=== PATIENT | female | born 1940 | race Caucasian/White ===

== ENCOUNTER → 2023-10-15 | Outpatient (REF) | payer MEDICARE, OTHER ==
[~2023-10-15] MED LIST: ASPIRIN E.C. 8181 MG PO; CALTRATE 600 +1 TAB PO; CRESTOR 10MG10 MG PO; CYMBALTA30 M1 PO; EZETIMIBE10 M1 PO; FLONASE ALLERG9.9 ML NS; HYDROXYZINE HCL25 M1 PO; K-TAB20 MEQ PO; LIDOCAINE PAIN1 EACH TP; LOPRESSOR 225 MG/TAB PO; MELOXICAM7.5 MG PO; NEXIUM 40MG40 MG PO; OMEGA 3 1,0001 EACH PO; SYSTANE ULTRA 010 M1 OP; TRAMADOL 50 MG TAB PO; VITAMIN B122500 MC1 PO
[2023-10-15 10:02] LABS: BASO # 0.02 K/mm3 (0.02-0.10); EOS # 0.26 K/mm3 (0.04-0.40); EOS % 3.5 % (1.0-5.0); HEMOGLOBIN 13.2 g/dL (12.5-16.0); LYMPH# 0.96 K/mm3 (1.50-4.00); MEAN CELL VOLUME 93 fl (78-100); MEAN CORPUSCULAR HEMOGLOBIN 30 pg (27-31); MEAN CORPUSCULAR HGB CONC 32 g/dL (33-37); MEAN PLATELET VOLUME 10.7 fl (7.4-10.4); MONO # 0.42 K/mm3 (0.20-0.80); NEU # 5.84 K/mm3 (1.40-6.50); PLATELET COUNT 180 K/mm3 (130-400); RED BLOOD COUNT 4.39 M/mm3 (4.10-5.30); RED CELL DISTRIBUTION WIDTH 13.9 % (11.5-14.5); WHITE BLOOD COUNT 7.5 K/mm3 (4.8-10.8)
== END ==
LOC: LAB 09:50
PROVIDERS: Orthopaedic Surgery Sports Medicine
DX: M00.862 Arthritis due to other bacteria, left knee (principal)